=== PATIENT | male | born 1945 | race Hispanic/Latino ===

== ENCOUNTER 2017-06-13 13:33 | Outpatient (CLI) | payer MEDICARE ==
--- NOTE | 2017-06-15 15:10 | Magnetic Resonance Report ---
MRA NECK WITHOUT CONTRAST: 06/13/17 CLINICAL: Essential tremor. COMPARISON:None. TECHNIQUE: Axial 3-D [id number] MR angiography with review of axial source images on a 1.5 Daily magnet. FINDINGS: The bilateral common and internal carotid arteries are patent and bilateral vertebral arteries are patent. The left vertebral artery is dominant. However, the quality of the examination is greatly degraded by motion which is apparently related to tremor. As result, the arteries cannot be evaluated for stenoses. IMPRESSION: Very limited examination.
--- NOTE | 2017-06-15 18:30 | Magnetic Resonance Report ---
MR scan of the cranium was performed without contrast. Pulse sequences included: 1. T1 weighted sagittal and axial images without contrast 2. T2 weighted axial and coronal images 3. FLAIR axial images 4. Diffusion-weighted axial images 5. Apparent diffusion coefficient images 6. axial gradient echo images Views of the posterior fossa showed a normal craniocervical junction. Cerebellar pontine angles were normal with normal seventh-eighth nerve complexes. Brainstem showed a questionable area of increased signal in the right basis pontis only seen on Flair images. The cerebellum was normal. The ventricular system showed no dilatation or distortion. Images of the hemispheres showed a lacunar infarct in the left putamen. Some periventricular white matter changes consistent with araiosis were present. Sinuses, flow voids in the [place], orbits, pituitary and basal ganglia were normal. Impression: Abnormal MR scan of the cranium without contrast. 1. 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 questionable infarct in the right pippa 3. white matter araiosis
--- NOTE | 2017-06-15 18:32 | Magnetic Resonance Report ---
MR angiogram was performed of the intracranial circulation 3-D [id number] spoiled grass images were obtained of the intracranial circulation. Study was of poor quality due to motion. The images of the carotid arteries showed no areas of occlusion or aneurysmal dilatation. The vertebral basilar system was also patent without any evidence of occlusive disease. Impression: Normal MR angiogram of the intracranial circulation but a very poor quality study
== END 2017-06-13 13:34 | disposition home or self-care (01) ==
LOC: SPVIMAG 13:33
PROVIDERS: ATTEND Specialist
DX: G25.0 Essential tremor (principal); G60.9 Hereditary and idiopathic neuropathy, unspecified; R90.82 White matter disease, unspecified
CPT/HCPCS: 70544; 70547; 70551